=== PATIENT | male | born 1970 | race Caucasian/White ===

== ENCOUNTER 2020-04-12 02:28 | Emergency (ER) | payer BC, SELFPAY ==
[2020-04-12 02:29] VITALS: BP 156/89; PULSE 99; RESP 16; TEMP 36.8; O2SAT 93; BMI 36.8
--- NOTE | 2020-04-12 02:40 | ED.DCSUM_ITS ---
- ER Visit Summary Date of Service: 04/12/20 Chief Complaint: Left foot laceration History of Present Illness: The patient is a 49 M who presents with laceration to his left foot that occurred tonight. Patient states he had a piece of glass in his right foot and scratched his left foot which caused a laceration. Patient describes his pain is dull. Patient states nothing makes it better or worse. Patient denies any paresthesias or weakness. Patient is unsure of his last tetanus. Patient states the bleeding stopped after several minutes of pressure. Patient denies any other injuries. Physical Examination: Vital signs are stable. Patient is afebrile. Patient is in no acute distress. Skin is warm dry. There is a 3.5 cm full-thickness linear laceration over the dorsal aspect of the left foot over the first metatarsal area. There is moderate gapping of the wound margins. There are no foreign bodies visualized. Sensation was intact light touch in all digits. Capillary refill was less than 2 seconds in all digits. Strength is 5/5 in flexion and extension of all digits. There were no tendon lacerations visualized. Test Results: X-rays of the left foot were obtained. There is no acute foreign body. There is no acute fracture. These were interpreted by myself and the radiologist. Emergency Department Course and Treatment: The wound was cleaned and irrigated with copious amounts of normal saline. The wound was anesthetized with 1% plain lidocaine locally. The wound was closed with 6 simple interrupted #4-0 nylon sutures under sterile technique. Patient tolerated the procedure well. Bacitracin dressing was applied. Patient was instructed to keep the wound clean and dry. Patient was instructed to follow-up with his primary care physician in 5 to 7 days. Patient understood and was agreeable with the plan. All questions were answered. Disposition: Discharge home Impression: 1. Left foot laceration This note was generated with [employer] software. It may contain incorrect words, spelling, and punctuation that were not noted in review of the chart prior to signing ED Disposition - Plan for ED Patient: Disposition: Home or Assisted Living Diagnosis: Laceration of left foot excluding toes without complication Instructions: ED Laceration Foot Referrals: Flavio Mcnulty MD [Primary Care Provider] - 7 Days for suture removal
--- NOTE | 2020-04-12 02:45 | RAD_ITS ---
STUDY: X-RAY - LEFT FOOT CLINICAL: Male, 49 years old. Status post laceration to left foot TECHNIQUE: 3 view(s) of the foot. COMPARISON: None. FINDINGS: Normal talus, calcaneus, and tarsal bones. Normal visualized subtalar, talonavicular, calcaneocuboid, tarsal and tarsometatarsal articulations. Normal metatarsi. Normal metatarsophalangeal joint of the great toe. Normal tibial and fibular sesamoid bones. Normal interphalangeal joint of the great toe. Normal phalanges of the great toe. Normal second through fifth metatarsophalangeal joints. Normal interphalangeal joints and phalanges of the lesser toes. The soft tissue structures are unremarkable. RAD/Foot min 3 Views IMPRESSION: Normal x-ray examination of the foot. Electronically Signed: Justin Arceo MD at 3:33 EDT Tel , Service support ,
[2020-04-12] MEDS: Diphth,Pertuss(Acell),Tet Vac 0.5 ML Vial IM (02:51)
[2020-04-12 04:13] VITALS: RESP 16
[2020-04-12] MEDS: BACITRACIN 15 GM Tube 1 APPLIC TOPICAL (04:14)
== END 2020-04-12 04:15 | disposition home or self-care (01) ==
PROVIDERS: Emergency Provider Emergency Medicine; PCP Family Medicine
DX: S91.312A Laceration without foreign body, left foot, initial encounter (principal); W25.XXXA Contact with sharp glass, initial encounter; Y93.9 Activity, unspecified; Y92.89 Other specified places as the place of occurrence of the external cause; Y99.9 Unspecified external cause status; F41.9 Anxiety disorder, unspecified
CPT/HCPCS: 12002; 73630; 90471; 90715; 99284